=== PATIENT | female | born 1940 | race Caucasian/White ===

== ENCOUNTER 2016-07-18 04:23 | Inpatient (IN) | payer MEDICARE, MEDICAID ==
[~2016-07-18] VITALS: Ht 160 cm; Wt 56.7 kg
[~2016-07-18 04:23] MED LIST: ONDANSETRON 4 MG/2 ML (SDV) Z0FRAN ONE
[2016-07-18] MEDS ORDERED: ONDANSETRON 4 MG/2 ML (SDV) Z0FRAN IVP ONE ×2 (04:30→07:15)
[2016-07-18] MEDS ORDERED: fentaNYL INJECTION 100 MCG/2 ML AMP ONE (04:32)
[2016-07-18] MEDS ORDERED: NS IV 500 ML 500 ML ONE ×2 (04:38→06:55)
[2016-07-18] MEDS ORDERED: NS IV 500 ML 500 ML IV ONE ×2 (04:42→06:59)
[2016-07-18] MEDS ORDERED: ASPIRIN 81 MG CHEW (CHILDREN'S ASA) PO ONE (04:45)
[2016-07-18] MEDS ORDERED: fentaNYL INJECTION 100 MCG/2 ML AMP IVP ONE (04:45)
[2016-07-18] MEDS ORDERED: morphine INJ 10 MG/ML 1ML (SYR OR VIAL) ONE (04:48)
[2016-07-18 04:50] LABS: BASOPHILS # (AUTO) 0.1 10^3/uL (0.0-0.1); BASOPHILS % (AUTO) 0 % (0-10); EOSINOPHILS # (AUTO) 0.4 10^3/uL (0.0-0.3); EOSINOPHILS % (AUTO) 2 % (0-10); LYMPHOCYTES # (AUTO) 11.3 X 10^3 (1.0-4.0); LYMPHOCYTES % (AUTO) 53 % (12-44); MEAN CORPUSCULAR HEMOGLOBIN 28 PG (25-34); MEAN CORPUSCULAR HGB CONC 33 G/DL (32-36); MEAN CORPUSCULAR VOLUME 86 FL (80-99); MEAN PLATELET VOLUME 10.5 FL (7.4-10.4); MONOCYTES # (AUTO) 1.6 X 10^3 (0.0-1.0); MONOCYTES % (AUTO) 8 % (0-12); NEUTROPHILS # (AUTO) 7.8 X 10^3 (1.8-7.8); NEUTROPHILS % (AUTO) 37 % (42-75); PLATELET COUNT 329 10^3/uL (130-400); RED BLOOD COUNT 4.28 10^6/uL (4.35-5.85); RED CELL DISTRIBUTION WIDTH 16.2 % (10.0-14.5); WHITE BLOOD COUNT 21.2 10^3/uL (4.3-11.0)
[2016-07-18] MEDS ORDERED: morphine INJ 10 MG/ML 1ML (SYR OR VIAL) IVP ONE ×2 (05:00→05:15)
[2016-07-18 05:06] LABS: ALANINE AMINOTRANSFERASE 11 U/L (0-55); ALBUMIN 2.9 G/DL (3.2-4.5); ANION GAP 13 MMOL/L (5-14); ASPARTATE AMINO TRANSFERASE 22 U/L (5-34); BILIRUBIN,TOTAL 0.3 MG/DL (0.1-1.0); BLOOD UREA NITROGEN 32 MG/DL (7-18); BUN/CREATININE RATIO 13; CALCIUM 12.4 MG/DL (8.5-10.1); CARBON DIOXIDE 20 MMOL/L (21-32); CHLORIDE 97 MMOL/L (98-107); CREATININE SERUM 2.39 MG/DL (0.60-1.30); GFR ESTIMATED 20; GLUCOSE 107 MG/DL (70-105); MAGNESIUM 2.2 MG/DL (1.8-2.4); SODIUM 130 MMOL/L (135-145); TOTAL PROTEIN 7.2 G/DL (6.4-8.2)
[2016-07-18] MEDS ORDERED: HEParin DRIP 25000 UNIT/500ML 500 ML IV ONE ×2 (05:06→05:29)
[2016-07-18] MEDS ORDERED: CLOPIDOGREL 300 MG (PLAVIX) TABLET PO ONE ×2 (05:06→05:15)
[2016-07-18] MEDS ORDERED: HEParin 1000 UNIT/ML (10ML VIAL) FOR BOLUS ONE (05:06)
[2016-07-18] MEDS ORDERED: HEParin 1000 UNIT/ML (10ML VIAL) FOR BOLUS IV ONE (05:15)
[2016-07-18 05:21] LABS: POTASSIUM 6.6 MMOL/L (3.6-5.0)
--- NOTE | 2016-07-18 05:24 | ED General ---
General Chief Complaint: Chest Pain Stated Complaint: SOA,SHOULDER PAIN Nursing Triage Note: pt reports cp off and on for 3 weeks. pt reports episode starting yesterday afternoon. pt also reports bilateral shoulder pain and nausea. Nursing Sepsis Screen: No Definite Risk Source of Information: Patient, EMS, Family, Halfway Records Exam Limitations: No Limitations (SANJANA CARBAJAL MD) History of Present Illness Time Seen by Provider: 04:28 Initial Comments This chronically debilitated 76-year-old woman presents to the emergency room from [facility] with complaints of bilateral shoulder pain, chest pain , nausea, and vomiting. Her pain seemed to be more an exacerbation of chronic pain. She has some associated shortness of breath. She has a history of coronary artery disease status post multivessel CABG. She recently moved to the custodial after having a prolonged stay at [facility] for UTI related sepsis. She was inpatient for greater than one month. Daughter reports a urinalysis was collected recently but final results have not returned. She has a chronic indwelling catheter that has not been replaced in the past 30 days. Patient is vomiting upon assessment in the exam room. singer back tender shows a tachycardia with ST changes. She is alert and oriented but rather irritable regarding her pain. 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 (SANJANA CARBAJAL MD) Allergies and Home Medications Allergies Coded Allergies: No Known Drug Allergies (Unverified , 07/18/16) Home Medications Aspirin 81 Mg Tab.chew 81 MG PO DAILY (Reported) Atorvastatin Calcium 20 Mg Tablet 20 MG PO HS (Reported) Bisacodyl 5 Mg Tablet.dr 5 MG PO BID (Reported) Clopidogrel Bisulfate 75 Mg Tablet 75 MG PO DAILY (Reported) Folic Acid 1 Mg Tablet 1 MG PO DAILY (Reported) Furosemide 40 Mg Tablet 40 MG PO DAILY (Reported) Hydroxyzine HCl 25 Mg Tablet 25 MG PO TID PRN PRN ITCHING (Reported) Melatonin/Pyridoxine 1 Each Tablet 5 MG PO HS (Reported) Nystatin 1 Each Powder.ea. TP BID PRN PRN RASH (Reported) Ondansetron HCl 4 Mg Tab 4 MG PO Q6H (Reported) Oxycodone HCl 5 Mg Tablet 2.5 MG PO EVERY 3 HOURS PRN PRN PAIN (Reported) TAKES 1/2 OF A (5 MG) TABLET / FOR PAIN RATING 1-5 Oxycodone HCl 5 Mg Tablet 5 MG PO EVERY 3 HOURS PRN PRN PAIN (Reported) FOR PAIN RATING 6-10 Oxycodone HCl 30 Mg Tab.er.12h 30 MG PO BID (Reported) Polyethylene Glycol 3350 119 Gm Powder 17 GM PO DAILY (Reported) Potassium Chloride 10 Meq Tablet.er 10 MEQ PO BID (Reported) Sennosides/Docusate Sodium 1 Each Tablet 1 TAB PO BID (Reported) Spironolactone 25 Mg Tablet 25 MG PO DAILY (Reported) Zinc Oxide 113 Gm Cream..g. TP DAILY (Reported) Constitutional: no symptoms reported EENTM: no symptoms reported Respiratory: see HPI Cardiovascular: see HPI Gastrointestinal: see HPI Genitourinary: see HPI Musculoskeletal: see HPI Skin: no symptoms reported Psychiatric/Neurological: See HPI Hematologic/Lymphatic: No Symptoms Reported (SANJANA CARBAJAL MD) Past Vixmyqu-Xechbt-Lcejyw Hx Patient Social History Alcohol Use: Denies Use Recreational Drug Use: No Smoking Status: Never a Smoker Recent Foreign Travel: No Contact w/Someone Who Travel: No Recent Infectious Disease Expo: No Recent Hopitalizations: No Physical Abuse Screen: No Sexual Abuse: No (SANJANA CARBAJAL MD) Immunizations Up To Date Date of Influenza Vaccine: May 07, 2016 (SANJANA CARBAJAL MD) Surgeries HX Surgeries: Yes (r/l knee, l hip, back, l mastectomy) Surgeries: CABG, Coronary Stent, Gallbladder, Hysterectomy, Orthopedic (SANJANA CARBAJAL MD) Respiratory Hx Respiratory Disorders: No (SANJANA CARBAJAL MD) Cardiovascular Hx Cardiac Disorders: Yes Cardiac Disorders: Coronary Artery Disease, Heart Attack, High Cholesterol, Hypertension (SANJANA CARBAJAL MD) Neurological Hx Neurological Disorders: Yes (r side deficit from previous stroke, restless leg syndrome) Neurological Disorders: Neuropathy, Stroke (SANJANA CARBAJAL MD) Genitourinary Hx Genitourinary Disorders: Yes Genitourinary Disorders: Renal Failure, UTI-Chronic (SANJANA CARBAJAL MD) Gastrointestinal Hx Gastrointestinal Disorders: Yes Gastrointestinal Disorders: Colitis, Gastroesophageal Reflux, Gastrointestinal Bleed, Ulcer (SANJANA CARBAJAL MD) Musculoskeletal Hx Musculoskeletal Disorders: Yes (muscle weakness, ) Musculoskeletal Disorders: Arthritis (SANJANA CARBAJAL MD) Endocrine Hx Endocrine Disorders: Yes Endocrine Disorders: Diabetes, Non-Insulin dep (SANJANA CARBAJAL MD) HEENT HX ENT Disorders: Yes HEENT Disorders: Dysphagia (SANJANA CARBAJAL MD) Cancer Hx Cancer: Yes Cancer: Breast (SANJANA CARBAJAL MD) Integumentary HX Skin/Integumentary Disorder: No (SANJANA CARBAJAL MD) Blood Transfusions Hx Blood Disorders: No Adverse Reaction to a Blood Tr: No (SANJANA CARBAJAL MD) Physical Exam Vital Signs Vital Sign - Last 12Hours 07/18/16 04:34 Temp 97.7 Pulse 151 Resp 20 B/P 141/94 Pulse Ox 95 O2 Delivery Room Air (ELENA SOTELO MD) Vital Signs Capillary Refill : Less Than 3 Seconds (SANJANA CARBAJAL MD) General Appearance: WD/WN Moderate Distress HEENT: PERRL/EOMI Normal ENT Inspection Other (oropharynx somewhat dry) Neck: Normal Inspection Respiratory: Lungs Clear Normal Breath Sounds No Accessory Muscle Use No Respiratory Distress Cardiovascular: No Edema No Murmur Tachycardia Gastrointestinal: Normal Bowel Sounds Soft Tenderness (mild, generalized) Back: Normal Inspection Other (large scar over the lower spine) Extremity: No Pedal Edema Other (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 Mood is somewhat irritable) Neurologic/Psychiatric: Alert Oriented x3 spike machine heater II-XII Norm as Tested Motor Weakness (chronic deficits from prior stroke) Skin: Normal Color Warm/Dry (SANJANA CARBAJAL MD) Lumen: triple Central Line Procedure: betadine prep sterile drapes applied sterile dressing applied Position: internal jugular (R) Anesthesia: Lidocaine Volume Anesthetic (ccs): 3 Complications: none Post Position: sutured, good blood return, position confirmed w/ CXR Progress Place via U/S guidance x 1 stick. Tolerated well. No complications. (ELENA SOTELO MD) Progress/Results/Core Measures Results/Orders Lab Results Laboratory Tests Test 07/18/16 04:28 07/18/16 05:20 07/18/16 05:32 07/18/16 06:49 Range/Units Activated Partial Thromboplast Time 26 24-35 SEC Alanine Aminotransferase (ALT/SGPT) 11 0-55 U/L Albumin 2.9 L 3.2-4.5 G/DL Alkaline Phosphatase 113 40-136 U/L Anion Gap 13 5-14 MMOL/L Anisocytosis SLIGHT Aspartate Amino Transf (AST/SGOT) 22 5-34 U/L BUN/Creatinine Ratio 13 Band Neutrophils 0 % Basophils # (Auto) 0.1 0.0-0.1 10^3/uL Basophils % (Manual) 0 % Basophils (%) (Auto) 0 0-10 % Blood Urea Nitrogen 32 H 7-18 MG/DL Calcium Level 12.4 H 8.5-10.1 MG/DL Carbon Dioxide Level 20 L 21-32 MMOL/L Chloride Level 97 L 98-107 MMOL/L Creatinine 2.39 H 0.60-1.30 MG/DL Elliptocytes SLIGHT Eosinophils # (Auto) 0.4 H 0.0-0.3 10^3/uL Eosinophils % (Manual) 2 % Eosinophils (%) (Auto) 2 0-10 % Estimat Glomerular Filtration Rate 20 Glucose Level 107 H 70-105 MG/DL Hematocrit 37 35-52 % Hemoglobin 12.0 11.5-16.0 G/DL INR Comment 1.0 0.8-1.4 Lymphocytes # (Auto) 11.3 H 1.0-4.0 X 10^3 Lymphocytes % (Manual) 58 % Lymphocytes (%) (Auto) 53 H 12-44 % Magnesium Level 2.2 1.8-2.4 MG/DL Mean Corpuscular Hemoglobin 28 25-34 PG Mean Corpuscular Hemoglobin Concent 33 32-36 G/DL Mean Corpuscular Volume 86 80-99 FL Mean Platelet Volume 10.5 H 7.4-10.4 FL Monocytes # (Auto) 1.6 H 0.0-1.0 X 10^3 Monocytes % (Manual) 4 % Monocytes (%) (Auto) 8 0-12 % Myoglobin 101.0 H 10.0-92.0 NG/ML Neutrophils # (Auto) 7.8 1.8-7.8 X 10^3 Neutrophils % (Manual) 34 % Neutrophils (%) (Auto) 37 L 42-75 % Platelet Count 329 130-400 10^3/uL Poikilocytosis SLIGHT Polychromasia SLIGHT Potassium Level 6.6 *H 3.6-5.0 MMOL/L Prothrombin Time 13.0 12.2-14.7 SEC Reactive Lymphocytes 2 % Red Blood Count 4.28 L 4.35-5.85 10^6/uL Red Cell Distribution Width 16.2 H 10.0-14.5 % Rouleau SLIGHT Schistocytes SLIGHT Sodium Level 130 L 135-145 MMOL/L Total Bilirubin 0.3 0.1-1.0 MG/DL Total Protein 7.2 6.4-8.2 G/DL Toxic Granulation 1+ Troponin I < 0.30 <0.30 NG/ML White Blood Count 21.2 H 4.3-11.0 10^3/uL Urine Bacteria LARGE H /HPF Urine Bilirubin NEGATIVE NEGATIVE Urine Calcium Oxalate Crystals FEW H /LPF Urine Casts PRESENT /LPF Urine Clarity VERY CLOUDY H Urine Color YELLOW Urine Crystals PRESENT H /LPF Urine Culture Indicated YES Urine Glucose (UA) NEGATIVE NEGATIVE Urine Hyaline Casts 0-2 H /LPF Urine Ketones NEGATIVE NEGATIVE Urine Leukocyte Esterase 3+ H NEGATIVE Urine Mucus NEGATIVE /LPF Urine Nitrite NEGATIVE NEGATIVE Urine Protein 3+ H NEGATIVE Urine RBC 5-10 H /HPF Urine RBC (Auto) 5+ H NEGATIVE Urine Specific [place] 1.015 L 1.016-1.022 Urine Squamous Epithelial Cells 0-2 /HPF Urine Urobilinogen NORMAL NORMAL MG/DL Urine WBC TNTC H /HPF Urine pH 7 5-9 Lactic Acid Level 3.5 *H 0.5-2.0 MMOL/L (ELENA SOTELO MD) Micro Results Microbiology 07/18/16 Influenza Types A,B Antigen (JOSE) - Final, Complete (ELENA SOTELO MD) My Orders Orders-ELENA SOTELO MD Chest 1 View, Ap/Pa Only (07/18/16 06:34) Basic Metabolic Panel (07/18/16 06:47) (ELENA SOTELO MD) Medications Given in ED Current Medications Medications Dose Ordered Sig/Nick Route Start Time Stop Time Status Last Admin Dose Admin Aspirin 324 mg 324 mg ONCE ONCE PO 07/18/16 04:45 07/18/16 04:46 DC 07/18/16 04:59 324 MG Calcium Gluconate 4.65 meq ONCE ONCE IV 07/18/16 06:00 07/18/16 06:01 DC 07/18/16 06:08 4.65 MEQ Clopidogrel Bisulfate 600 mg 600 mg ONCE ONCE PO 07/18/16 05:15 07/18/16 05:16 DC 07/18/16 05:17 600 MG Dextrose 25 ml ONCE ONCE IV 07/18/16 05:45 07/18/16 05:46 MN 07/18/16 05:53 25 ML Fentanyl Citrate 100 mcg STK-MED ONCE .ROUTE 07/18/16 04:32 07/18/16 04:40 DC 07/18/16 04:49 50 MCG Heparin Sodium (Porcine) HEPARIN FULL PROTOC... ONCE ONCE IV 07/18/16 05:15 07/18/16 05:17 DC 07/18/16 05:22 4,500 UNIT Heparin Sodium/ Dextrose 500 ml STK-MED ONCE IV 07/18/16 05:06 07/18/16 05:14 DC 07/18/16 05:32 Insulin Human Regular 5 unit 5 unit ONCE ONCE IV 07/18/16 05:45 07/18/16 05:46 DC 07/18/16 05:53 5 UNIT Morphine Sulfate 4 mg ONCE ONCE IVP 07/18/16 05:00 07/18/16 05:01 MN 07/18/16 04:57 4 MG Morphine Sulfate 5 mg ONCE ONCE IVP 07/18/16 05:15 07/18/16 05:16 MN 07/18/16 05:16 5 MG Ondansetron HCl 8 mg ONCE ONCE IVP 07/18/16 04:30 07/18/16 04:31 MN 07/18/16 04:33 8 MG Piperacillin Sod/ Tazobactam Sod/ Sodium Chloride 100 ml @ 200 mls/hr ONCE ONCE IV 07/18/16 05:45 07/18/16 06:14 MN 07/18/16 06:00 200 MLS/HR Sodium Chloride 500 ml @ 0 mls/hr Q0M ONCE IV 07/18/16 04:42 07/18/16 04:46 DC 07/18/16 04:40 0 MLS/HR Sodium Chloride 1,000 ml @ 0 mls/hr Q0M ONCE IV 07/18/16 05:26 07/18/16 05:27 DC 07/18/16 05:32 0 MLS/HR (ELENA SOTELO MD) Vital Signs/I&O Vital Sign - Last 12Hours 07/18/16 07/18/16 07/18/16 04:34 04:34 05:07 Temp 97.7 97.7 Pulse 151 151 Resp 20 20 B/P 141/94 141/94 Pulse Ox 95 95 O2 Delivery Room Air Room Air (ELENA SOTELO MD) Blood Pressure Mean: 110 Progress Note #1: Time: 05:10 Progress Note Patient's EKG was suggestive of acute WA. This was communicated to the patient and she is uncertain if she would want to proceed with heart catheter. Case was discussed with Dr. Patrick who has concerns about proceeding with a heart catheter given the elevated white count and question of sepsis. Patient is tachycardic and has had history of sepsis with recent urinary tract infection. Given the complexity of the situation with possible sepsis, history of multivessel CABG, patient's DNR status, and her hesitancy to commit to invasive procedures, conservative medical therapy will be pursued at this time. Patient stresses that the most important thing to her at this point is to be made comfortable. Septic workup is in progress. Patient has been given multiple doses of narcotics for comfort. Nausea and vomiting was treated with Zofran. The situation and plan of care was again discussed with patient and family. They are in agreement with this approach. Dr. Patrick suggests treating with Plavix 600 mg, heparin bolus of 5000 units, beta eva, and high-dose statin. Progress Note #2: Time: 05:52 Progress Note STEMI has now been questioned given the presence of hyperkalemia. Abnormal EKG may be due to hyperacute T waves from hyperkalemia. Patient is persistently complaining of pain in multiple locations including the coccyx, shoulders, back , feet, etc. She has been given several doses of narcotic pain medications including most recently Dilaudid 1 mg IV. Treatment for hyperkalemia has been ordered including insulin 5 units IV, D50 25 g, and Kayexalate. She has received about 600 mL of IV fluids with further infusion in progress. Heparin drip is infusing. Continued discussion with Dr. Patrick has led to consideration for transfer to a tertiary care facility. Patient is hesitant to commit to transfer and is discussing with family. Progress Note #3: Time: 06:09 Progress Note Patient has decided against transfer. She is concerned about her pain and inability to tolerate transfer. Also, patient has developed hypotension in the meantime. Patient needs to be more stable before transfer is considered. Hypotension may be partially secondary to multiple narcotic doses. Patient's pain is moderately improved at this time. Zosyn is infusing for initial treatment of her suspected sepsis. An amp of calcium gluconate has also been ordered. The Toprol-XL previously ordered is being held due to hypotension. Progress Note #4: Time: 06:35 Progress Note Central line has been placed by Dr. Sotelo. Care has been transferred to him at this time. Case was reviewed with Dr. Adalgisa Hammer who is agreeable to admission to the ICU. Blood pressure is improving with fluid resuscitation. (SANJANA CARBAJAL MD) Progress Note : Progress Note Central line complete by me without difficulty via ultrasound guidance. Repeat BMP ordered to evaluate current potassium level. Patient remains hypotensive and has elevated white count and urinary tract infection which would indicate septic shock requiring high-volume fluid resuscitation. Patient has had normal saline 1 L bolus as well as a 500 mL bolus. We will repeat 500 mL bolus to give greater than 30 mL/kg IV bolus of saline (approximately 1700 mL required). Patient refused Kayexalate. Heart rate has improved to 120s low blood pressure remains tenuous. Patient will be transferred to the ICU. Family and patient were informed of the critical nature of her condition and understand this is significantly life-threatening overall. (ELENA SOTELO MD) ECG Initial ECG Impression Date: Jul 18, 2016 Initial ECG Impression Time: 04:34 Initial ECG Rate: 152 Initial ECG Rhythm: S.Tach Initial ECG Impression: Acute WA Comment Sinus tachycardia with ST elevation indicative of acute WA versus hyperacute T waves from hyperkalemia. (SANJANA CARBAJAL MD) Diagnostic Imaging Diagonstic Imaging: Xray Plain Films/CT/US/NM/MRI: chest Comments Chest x-ray viewed by me and report not yet available. No acute abnormalities appreciated. (SANJANA CARBAJAL MD) Critical Care Note Critical Care Start Time: 04:30 Stop Time: 07:15 Total Time (minutes) 165 (SANJANA CARBAJAL MD) Departure Communication Time/Spoke to Admitting Phy: 06:[address] Adalgisa Hammer Time/Spoke to Consulting Physi: 04:38 Communication/Consulting Dr. Patrick (SANJANA CARBAJAL MD) Impression Impression: Primary Impression: Septic shock Additional Impressions: Acute coronary syndrome Hyperkalemia Acute renal failure Qualified Code: N17.9 - Acute kidney failure, unspecified Generalized pain Urinary tract infection Qualified Code: N39.0 - Urinary tract infection, site not specified Hyponatremia Disposition: ADMITTED INPATIENT Condition: Critical Decision to Admit Reason: Admit from ER (General) Decision to Admit/Date: Jul 18, 2016 Time/Decision to Admit Time: 04:35 (SANJANA CARBAJAL MD) Departure-Patient Inst. Referrals: BHUMI CRUZ MD (PCP) Primary Care Physician SANJANA CARBAJAL MD Jul 18, 2016 05:24 ELENA SOTELO MD Jul 18, 2016 06:47
[2016-07-18 05:26] LABS: BAND NEUTROPHILS 0 %; BASOPHILS % (MANUAL) 0 %; EOSINOPHILS % (MANUAL) 2 %; LYMPHOCYTES % (MANUAL) 58 %; NEUTROPHILS % (MANUAL) 34 %; REACTIVE LYMPHOCYTES 2 %
[2016-07-18] MEDS ORDERED: NS IV 1000 ML 1,000 ML IV ONE (05:26)
[2016-07-18 05:27] LABS: ANISOCYTOSIS SLIGHT; POIKILOCYTOSIS SLIGHT; POLYCHROMASIA SLIGHT; ROULEAUX SLIGHT; SCHISTOCYTES SLIGHT
[2016-07-18] MEDS ORDERED: SOD POLYSTERENE 15 GM/60 ML (KAYEXALATE) UNIT DOSE PO ONE (05:30)
[2016-07-18] MEDS ORDERED: HYDROmorphone (DILAUDID) 2 MG/ML VIAL IVP STA (05:36)
[2016-07-18] MEDS: meTOproloL SUCCINATE 50 MG (TOPROL XL) TAB PO SCH ×2 (05:37→07:04)
[2016-07-18 05:40] LABS: BILIRUBIN,URINE NEGATIVE (NEGATIVE); KETONES,URINE NEGATIVE (NEGATIVE); LEUKOCYTE ESTERASE ,URINE 3+ (NEGATIVE); NITRITE,URINE NEGATIVE (NEGATIVE); PH,URINE 7 (5-9); PROTEIN,URINE 3+ (NEGATIVE); UROBILINOGEN,URINE NORMAL (NORMAL)
[2016-07-18] MEDS ORDERED: PIPERACILLIN SODIUM/TAZOBACTAM 4.5 GM in NORMAL SALINE (BAXTER MINI) 100 ML IV ONE (05:45)
[2016-07-18] MEDS ORDERED: inSUlin (REGULAR) HUMAN 1 UNIT/0.01 ML (CHARGE PER UNIT) IV ONE (05:45)
[2016-07-18] MEDS ORDERED: DEXTROSE 50% 50 ML (IMS) SYR IV ONE (05:45)
[2016-07-18 05:47] LABS: CALCIUM OXALATE CRYSTALS,UR FEW /LPF; SQUAMOUS EPITHELIAL CELL,UR 0-2 /HPF; WBC,URINE TNTC /HPF
[2016-07-18 05:48] LABS: HYALINE CASTS, URINE 0-2 /LPF
[2016-07-18] MEDS ORDERED: PIPERACILLIN/TAZO 4.5 GM VIAL (ZOSYN) IV ONE (05:53)
[2016-07-18] MEDS ORDERED: NORMAL SALINE (BAXTER MINI) 100 ML IV ONE (05:53)
[2016-07-18] MEDS ORDERED: CALCIUM GLUC. 10% 4.65 MEQ/10 ML VIAL IV ONE ×2 (06:00→07:15)
[2016-07-18] MEDS ORDERED: ATORVASTATIN 80 MG (LIPITOR) TABLET ONE (06:40)
--- NOTE | 2016-07-18 06:49 | Diagnostic Imaging Report ---
INDICATION: Central line placement. COMPARISON: 4:53 a.m. exam. FINDINGS: Right central line is present. Tip overlies a superior vena caval shadow at the confluence of the right atrium. Lungs are well-aerated. No pneumothorax or pleural effusion. Postoperative residue again noted. IMPRESSION: Satisfactory right central line placement. Dictated by: Dictated on workstation # [id number]
--- NOTE | 2016-07-18 06:55 | Diagnostic Imaging Report ---
Indication: Chest pain for 3 weeks. Portable chest shows lungs to be clear. The heart is not enlarged. Median sternotomy changes are present. No evidence of pulmonary edema. No pneumothorax or pleural effusion. Advanced degenerative changes noted of the shoulders bilaterally. IMPRESSION: Postoperative residue with no acute changes noted. Dictated by: Dictated on workstation # [id number]
[2016-07-18 07:00] VITALS: BP 82/29
[2016-07-18] MEDS ORDERED: ONDANSETRON 4 MG/2 ML (SDV) Z0FRAN ONE (07:00)
[2016-07-18] MEDS ORDERED: VASOPRESSIN INJECTION 20 UNIT in NS (IVPB) 100 ML IV SCH (07:35)
[2016-07-18] MEDS ORDERED: PHENYLEPHRINE FOR DRIPS 10 MG in D5W 250 ML (IVPB) 250 ML IV SCH (07:35)
[2016-07-18] MEDS ORDERED: HYDROmorphone (DILAUDID) 2 MG/ML VIAL IV PRN (07:45)
[2016-07-18] MEDS ORDERED: CATHETER FLUSH 10 ML SYR IV PRN (07:45)
[2016-07-18] MEDS ORDERED: ONDANSETRON 4 MG/2 ML (SDV) Z0FRAN IV PRN (07:45)
[2016-07-18 08:00] VITALS: BP 101/94
[2016-07-18] MEDS ORDERED: VANCOMYCIN INJECTION 1,250 MG in NS (IVPB) 250 ML IV NR (08:00)
[2016-07-18] MEDS ORDERED: D5W 250 ML (IVPB) 250 ML IV ONE (08:03)
[2016-07-18] MEDS ORDERED: NOREPINEPHRINE FOR DRIPS 4 MG/4 ML AMP IV ONE (08:03)
[2016-07-18] MEDS: NOREPINEPHRINE FOR DRIPS 4 MG in D5W 250 ML (IVPB) 250 ML IV SCH (08:20)
[2016-07-18] MEDS: NS IV 1000 ML 1,000 ML IV SCH (08:21)
[2016-07-18 08:26] LABS: CALCIUM 11.5 MG/DL (8.5-10.1); CREATININE SERUM 2.06 MG/DL (0.60-1.30); POTASSIUM 5.4 MMOL/L (3.6-5.0)
[2016-07-18 08:55] LABS: ABG BASE EXCESS -2.3 MMOL/L (-2.5-2.5); ABG HCO3 21 MMOL/L (23-27); ABG OXYGEN SATURATION 98 % (94-100); ABG PCO2 30 MMHG (35-45); ABG PH 7.46 (7.37-7.43); ABG PO2 94 MMHG (79-93); ABG TCO2 21.9 MMOL/L (21.0-31.0); ALLENS TEST POSITIVE; PATIENT TEMP 97.4
[2016-07-18 09:00] VITALS: BP 87/65
[2016-07-18] MEDS: HYDROmorphone (DILAUDID) 2 MG/ML VIAL IVP PRN ×4 (09:06→15:24)
[2016-07-18] MEDS ORDERED: SPIR25TA PO (09:24)
[2016-07-18] MEDS ORDERED: MELA1TAB15 PO (09:24)
[2016-07-18] MEDS ORDERED: BISA-65 PO (09:24)
[2016-07-18] MEDS ORDERED: CLOP75TA69 PO (09:24)
[2016-07-18] MEDS ORDERED: FOLI1TAB24 PO (09:24)
[2016-07-18] MEDS ORDERED: POLY119P5 PO (09:24)
[2016-07-18] MEDS ORDERED: OXYC30TA77 PO (09:24)
[2016-07-18] MEDS ORDERED: OXYC5TAB71 PO ×2 (09:24)
[2016-07-18] MEDS ORDERED: ONDN4T PO (09:24)
[2016-07-18] MEDS ORDERED: ATOR20TA66 PO (09:24)
[2016-07-18] MEDS ORDERED: SENN-120 PO (09:24)
[2016-07-18] MEDS ORDERED: FURO-124 PO (09:24)
[2016-07-18] MEDS ORDERED: HYDR-700 PO (09:24)
[2016-07-18] MEDS ORDERED: POTA10TA6 PO (09:24)
[2016-07-18] MEDS ORDERED: ASPI-999 PO (09:24)
--- NOTE | 2016-07-18 09:25 | History & Physicial (CHS) ---
HPI History of Present Illness: 76yo woman presented to ER after complaining of palpitations and shortness of breath overnight in her prison at [facility]. She was hospitalized at for bleeding gastric ulcers and sepsis for 40 days in fall. She was then transferred to [facility] to be closer to family. SInce taht time, she has had ongoing urinary issues. she was recommended to see Dr Bloivar but was not able to attend an appointment with him. In June, she began to have sx of a UTI again, and cultures were done. She was put on oral antibiotics, and the situation seemed to be resolving. However, she worsened acutely overnight and was found to be in septic shock. Patient's main complaint to me the morning of admission was of her generalized pain, likely cuased by her longstanding bedridden status and debility. Of note, patient's family emphasized that patient did not want a code. They also stated that she did not want transfer despite this being recommended due to hyperacute T waves due to her renal failure. THey requested that she be treated at [facility] with all services we have to offer. Source: patient, family Exam Limitations: clinical condition Date seen by provider: Jul 18, 2016 Attending Physician Adalgisa Hammer MD PCP Bhumi Cruz MD Consult Date of Admission Jul 18, 2016 at 6:21 am Home Medications Home Medications Reviewed patient Home Medication Reconciliation Form Allergies Coded Allergies: No Known Drug Allergies (Unverified , 07/18/16) [id number] Hx Patient Social History Alcohol Use: Denies Use Recreational Drug Use: No Smoking Status: Never a Smoker Recent Foreign Travel: No Contact w/other who traveled: No Recent Hopitalizations: No Recent Infectious Disease Expo: No Physical Abuse Screen: No Sexual Abuse: No Immunizations Up To Date Date of Influenza Vaccine: May 07, 2016 Review of Systems ([facility]) Constitutional: no symptoms reported All Other Systems Reviewed Negative Unless Noted: Yes (Negative excepted noted.) Reviewed Test Results Reviewed Test Results Lab Laboratory Tests Test 07/18/16 04:28 07/18/16 05:20 07/18/16 05:32 07/18/16 07:51 Range/Units Activated Partial Thromboplast Time 26 24-35 SEC Alanine Aminotransferase (ALT/SGPT) 11 0-55 U/L Albumin 2.9 L 3.2-4.5 G/DL Alkaline Phosphatase 113 40-136 U/L Anion Gap 13 11 5-14 MMOL/L Anisocytosis SLIGHT Aspartate Amino Transf (AST/SGOT) 22 5-34 U/L BUN/Creatinine Ratio 13 14 Band Neutrophils 0 % Basophils # (Auto) 0.1 0.0-0.1 10^3/uL Basophils % (Manual) 0 % Basophils (%) (Auto) 0 0-10 % Blood Urea Nitrogen 32 H 29 H 7-18 MG/DL Calcium Level 12.4 H 11.5 H 8.5-10.1 MG/DL Carbon Dioxide Level 20 L 18 L 21-32 MMOL/L Chloride Level 97 L 103 98-107 MMOL/L Creatinine 2.39 H 2.06 H 0.60-1.30 MG/DL Elliptocytes SLIGHT Eosinophils # (Auto) 0.4 H 0.0-0.3 10^3/uL Eosinophils % (Manual) 2 % Eosinophils (%) (Auto) 2 0-10 % Estimat Glomerular Filtration Rate 20 23 Glucose Level 107 H 101 70-105 MG/DL Hematocrit 37 35-52 % Hemoglobin 12.0 11.5-16.0 G/DL INR Comment 1.0 0.8-1.4 Lymphocytes # (Auto) 11.3 H 1.0-4.0 X 10^3 Lymphocytes % (Manual) 58 % Lymphocytes (%) (Auto) 53 H 12-44 % Magnesium Level 2.2 1.8-2.4 MG/DL Mean Corpuscular Hemoglobin 28 25-34 PG Mean Corpuscular Hemoglobin Concent 33 32-36 G/DL Mean Corpuscular Volume 86 80-99 FL Mean Platelet Volume 10.5 H 7.4-10.4 FL Monocytes # (Auto) 1.6 H 0.0-1.0 X 10^3 Monocytes % (Manual) 4 % Monocytes (%) (Auto) 8 0-12 % Myoglobin 101.0 H 10.0-92.0 NG/ML Neutrophils # (Auto) 7.8 1.8-7.8 X 10^3 Neutrophils % (Manual) 34 % Neutrophils (%) (Auto) 37 L 42-75 % Platelet Count 329 130-400 10^3/uL Poikilocytosis SLIGHT Polychromasia SLIGHT Potassium Level 6.6 *H 5.4 H 3.6-5.0 MMOL/L Prothrombin Time 13.0 12.2-14.7 SEC Reactive Lymphocytes 2 % Red Blood Count 4.28 L 4.35-5.85 10^6/uL Red Cell Distribution Width 16.2 H 10.0-14.5 % Rouleau SLIGHT Schistocytes SLIGHT Sodium Level 130 L 132 L 135-145 MMOL/L Total Bilirubin 0.3 0.1-1.0 MG/DL Total Protein 7.2 6.4-8.2 G/DL Toxic Granulation 1+ Troponin I < 0.30 < 0.30 <0.30 NG/ML White Blood Count 21.2 H 4.3-11.0 10^3/uL Urine Bacteria LARGE H /HPF Urine Bilirubin NEGATIVE NEGATIVE Urine Calcium Oxalate Crystals FEW H /LPF Urine Casts PRESENT /LPF Urine Clarity VERY CLOUDY H Urine Color YELLOW Urine Crystals PRESENT H /LPF Urine Culture Indicated YES Urine Glucose (UA) NEGATIVE NEGATIVE Urine Hyaline Casts 0-2 H /LPF Urine Ketones NEGATIVE NEGATIVE Urine Leukocyte Esterase 3+ H NEGATIVE Urine Mucus NEGATIVE /LPF Urine Nitrite NEGATIVE NEGATIVE Urine Protein 3+ H NEGATIVE Urine RBC 5-10 H /HPF Urine RBC (Auto) 5+ H NEGATIVE Urine Specific [place] 1.015 L 1.016-1.022 Urine Squamous Epithelial Cells 0-2 /HPF Urine Urobilinogen NORMAL NORMAL MG/DL Urine WBC TNTC H /HPF Urine pH 7 5-9 Lactic Acid Level 3.5 *H 4.0 *H 0.5-2.0 MMOL/L Test 07/18/16 08:48 Range/Units Christian Test POSITIVE Arterial Blood Base Excess -2.3 -2.5-2.5 MMOL/L Arterial Blood HCO3 21 L 23-27 MMOL/L Arterial Blood Oxygen Saturation 98 94-100 % Arterial Blood Partial Pressure CO2 30 L 35-45 MMHG Arterial Blood Partial Pressure O2 94 H 79-93 MMHG Arterial Blood Total CO2 21.9 21.0-31.0 MMOL/L Arterial Blood pH 7.46 H 7.37-7.43 Blood Gas Inspired Oxygen N/A Blood Gas Patient Temperature 97.4 Blood Gas Puncture Site RIGHT BRACHIAL Blood Gas Ventilator Setting NO Physical Exam-(CHC) Physical Exam Vital Signs VS - Last 72 Hours, by Label 07/18/16 07/18/16 07/18/16 07/18/16 04:34 04:34 05:00 05:07 Temp 97.7 97.7 97.7 Pulse 151 151 151 Resp 20 20 10 B/P 141/94 141/94 145/95 Pulse Ox 95 95 95 O2 Delivery Room Air Room Air 07/18/16 07/18/16 07/18/16 07/18/16 05:30 06:00 06:30 07:00 Temp 97.7 97.7 97.7 97.7 Pulse 151 136 136 119 Resp 13 13 12 14 B/P 104/72 95/48 106/66 94/42 Pulse Ox 98 94 94 96 07/18/16 07/18/16 07/18/16 07/18/16 07:00 07:18 08:00 08:20 Temp 97.8 Pulse 119 100 Resp 18 11 15 B/P 82/29 101/94 71/25 Pulse Ox 97 95 07/18/16 07/18/16 07/18/16 07/18/16 09:00 10:00 11:00 12:00 Pulse 80 104 110 B/P 87/65 54/46 104/85 100/78 07/18/16 20:45 O2 Delivery Room Air Capillary Refill : Less Than 3 Seconds General Appearance: moderate distress thin (crying in pain) HEENT: PERRL/EOMI other (very dry MM) Neck: non-tender supple normal inspection Respiratory: lungs clear normal breath sounds no respiratory distress no accessory muscle use Cardiovascular: no edema no gallop no JVD no murmur tachycardia Gastrointestinal: normal bowel sounds non tender soft no organomegaly Extremities: no pedal edema calf tenderness slow capillary refill Neurologic/Psychiatric: no motor/sensory deficits alert oriented x 3 depressed affect (due to pain) Skin: cyanosis cool mottled Assessment/Plan Assessment/Plan Plan SEVERE SEPSIS/SEPTIC SHOCK ACUTE PYELONEPHRITIS LONGSTANDING INDWELLING MAYES CATHETER STEMI VERSUS STRESS CARDIOMYOPATHY 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 HOwever, the patient continued to cry out "don't touch me " and "let me go." I discussed with her daughter, in her presence, that there were many issues to overcome. I first asked if she would want elective intubation should she not be able to breathe well from the rapid fluid administration. Her daughter and the patient indicated that she did not want to be on lorne vent whatsoever. Secondly, I approached them regarding a comfort/ palliative care direction. My concern is that the family would remember the patient crying in pain, especially if we were unsuccessful and she . When asked, Renata was very clear to me that she wanted to stop everything and receive pain medication. I explained that the apin medication would greatly inhibit our efforts to improve her blood pressure and potentially to save her life. She was very clear that she was "ready to go." For that reason , we decided to move to a comfort care regimen. I did leave the levophed on for a few hours while her family came in to town to visit with her. From there , we stopped all meds and moved to dilaudid for pain control and ativan for anxiety. She was transferred to 4th floor for increased privacy. Patinet and family were appreciative of and agreeable to this plan. Diagnosis/Problems: Clinical Quality Measures AMI/AHF: ASA po Prior to arrival: No Copy Copies To 1: BHUMI CRUZ MD, JULIE A MD Jul 18, 2016 9:25 am
[2016-07-18 10:00] VITALS: BP 54/46
[2016-07-18] MEDS ORDERED: NYST1POW22 TP (10:39)
[2016-07-18] MEDS ORDERED: ZINC113C8 TP (10:39)
[2016-07-18 11:00] VITALS: BP 104/85
[2016-07-18 12:00] VITALS: BP 100/78
[2016-07-18] MEDS ORDERED: PIPERACILLIN SODIUM/TAZOBACTAM 4.5 GM in NORMAL SALINE (BAXTER MINI) 100 ML IV SCH (12:00)
[2016-07-18] MEDS ORDERED: NS IV 1000 ML 1,000 ML IV SCH (12:45)
--- NOTE | 2016-07-18 13:22 | Consultation-Cardiology ---
HPI-Cardiology Cardiology Consultation: Date of Consultation 07/18/16 Date of Admission Attending Physician Adalgisa Hammer MD Admitting Physician Terence Johnston MD Consulting Physician Rashida PATRICK MD HPI: Chief Complaint: Chest pain, shoulder pain, nausea, vomiting. This is a 76-year-old lady who presented from a [place] [facility] to our emergency room with the complaints of chest pain, shoulder pain, nausea and vomiting. She was transferred to the [place] [facility] [place] after a prolonged admission at [facility] for UTI sepsis with an indwelling catheter. She has previous history of CVA and hemiplegia and is non-ambulatory. She also has history of cognitive dysfunction. 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 I saw the patient in the morning at around 8-9 a.m. however this note is dictated in the afternoon. I stayed in touch with Dr. Ayala in the ER since manager client service. Initially I was called because the EKG showed diffused ST depressions and peaked T waves in the anterior precordial leads which were suspicious for acute VT. At that point in time we also learned that the patient had a positive UA for UTI and a white count of over 20,000 which suggest significant UTI sepsis. The patient also was very reluctant to undergo invasive procedures and wanted to be more comfortable. This was also the wish of the family. While I was discussing with the ER physician, we also got back the electrolytes which showed a potassium of 6.6 and creatinine of 2.4. Severe hyperkalemia can also give peaked T waves. Her first set of troponin was negative. We therefore decided not to pursue invasive strategy for her possible ACS and treat her with medications including aspirin, Plavix, heparin. When I saw the patient she was complaining of generalized pain. However, she was not specifically having any chest pain but more of a left shoulder pain and back pain. Review of Systems-Cardiology Review of Systems Constitutional: chills Eyes: No As described under HPI, No no symptoms reported, No blindness, No blurred vision, No contact lenses, No drainage, No decreased acuity, No foreign body sensation, No glasses, No inflammation, No pain, No photophobia, No previous injury, No shadows, No tunnel vision, No other, No vision change Ears/Nose/Throat: No As described under HPI, No no symptoms reported, No chronic hearing loss, No epistaxis, No ear discharge, No ear pain, No loose teeth, No mouth pain, No mouth swelling, No nasal drainage, No nose pain, No recent hearing loss, No throat pain, No throat swelling, No ulcerations, No other Respiratory: No no symptoms reported, No As described under HPI, No cough, No orthopnea, No shortness of breath, No SOB with excertion, No SOB at rest, No stridor, No wheezing, No other Cardiovascular: No no symptoms reported, No As described under HPI, chest painNo edema, No irregular heart rate, No lightheadedness, No palpitations, No syncope, No other Gastrointestinal: No no symptoms reported, No As described under HPI, No abdomen distended, No abdominal pain, No blood streaked bowels, No constipation , No diarrhea, No difficulty swallowing, nauseaNo poor appetite, No poor fluid intake, No rectal bleeding, vomitingNo other, No nausea/vomiting/diarrhea, No stool coloration changes Genitourinary: other (indwelling urinary catheter) Musculoskeletal: back pain Skin: No no symptoms reported, No As described under HPI, No change in color, No change in hair/nails, No dryness, No lesions, No lumps, No rash, No other, No skin related problems, No ulcerations, No rash on exposed areas, No ulcerations on exposed areas Psychiatric/Neurological: No As described under HPI, No anxiety, No depression , No emotional problems, No focal weakness, No headache, No no symptoms reported , No numbness, No other, No pre-existing deficit, No seizure, No syncope, No tingling, No tremors, No weakness [id number] Hx Patient Social History Alcohol Use: Denies Use Recreational Drug Use: No Smoking Status: Never a Smoker Recent Foreign Travel: No Recent Infectious Disease Expo: No Physical Abuse Screen: No Sexual Abuse: No Immunizations Up To Date Date of Influenza Vaccine: May 07, 2016 Past Medical History PMH As described under Assessment. Allergies and Home Medications Allergies Coded Allergies: No Known Drug Allergies (Unverified , 07/18/16) Home Medications Aspirin 81 Mg Tab.chew 81 MG PO DAILY (Reported) Atorvastatin Calcium 20 Mg Tablet 20 MG PO HS (Reported) Bisacodyl 5 Mg Tablet.dr 5 MG PO BID (Reported) Clopidogrel Bisulfate 75 Mg Tablet 75 MG PO DAILY (Reported) Folic Acid 1 Mg Tablet 1 MG PO DAILY (Reported) Furosemide 40 Mg Tablet 40 MG PO DAILY (Reported) Hydroxyzine HCl 25 Mg Tablet 25 MG PO TID PRN PRN ITCHING (Reported) Melatonin/Pyridoxine 1 Each Tablet 5 MG PO HS (Reported) Nystatin 1 Each Powder.ea. TP BID PRN PRN RASH (Reported) Ondansetron HCl 4 Mg Tab 4 MG PO Q6H (Reported) Oxycodone HCl 5 Mg Tablet 2.5 MG PO EVERY 3 HOURS PRN PRN PAIN (Reported) TAKES 1/2 OF A (5 MG) TABLET / FOR PAIN RATING 1-5 Oxycodone HCl 5 Mg Tablet 5 MG PO EVERY 3 HOURS PRN PRN PAIN (Reported) FOR PAIN RATING 6-10 Oxycodone HCl 30 Mg Tab.er.12h 30 MG PO BID (Reported) Polyethylene Glycol 3350 119 Gm Powder 17 GM PO DAILY (Reported) Potassium Chloride 10 Meq Tablet.er 10 MEQ PO BID (Reported) Sennosides/Docusate Sodium 1 Each Tablet 1 TAB PO BID (Reported) Spironolactone 25 Mg Tablet 25 MG PO DAILY (Reported) Zinc Oxide 113 Gm Cream..g. TP DAILY (Reported) Physical Exam-Cardiology Physical Exam Vital Signs/I&O Vital Sign - Last 12Hours 07/18/16 07/18/16 07/18/16 07/18/16 04:34 04:34 05:00 05:07 Temp 97.7 97.7 97.7 Pulse 151 151 151 Resp 20 20 10 B/P 141/94 141/94 145/95 Pulse Ox 95 95 95 O2 Delivery Room Air Room Air 07/18/16 07/18/16 07/18/16 07/18/16 05:30 06:00 06:30 07:00 Temp 97.7 97.7 97.7 97.7 Pulse 151 136 136 119 Resp 13 13 12 14 B/P 104/72 95/48 106/66 94/42 Pulse Ox 98 94 94 96 07/18/16 07/18/16 07:18 08:20 Pulse 119 Resp 18 15 B/P 71/25 Pulse Ox 97 95 Capillary Refill : Less Than 3 Seconds Data Review Labs Laboratory Tests 07/18/16 04:28: Activated Partial Thromboplast Time 26, Alanine Aminotransferase (ALT/SGPT) 11, Albumin 2.9L, Alkaline Phosphatase 113, Anion Gap 13, Anisocytosis SLIGHT, Aspartate Amino Transf (AST/SGOT) 22, BUN/Creatinine Ratio 13, Band Neutrophils 0, Basophils # (Auto) 0.1, Basophils % (Manual) 0, Basophils (%) (Auto) 0, Blood Urea Nitrogen 32H, Calcium Level 12.4H, Carbon Dioxide Level 20L, Chloride Level 97L, Creatinine 2.39H, Elliptocytes SLIGHT, Eosinophils # (Auto) 0.4H, Eosinophils % (Manual) 2, Eosinophils (%) (Auto) 2, Estimat Glomerular Filtration Rate 20, Glucose Level 107H, Hematocrit 37, Hemoglobin 12.0, INR Comment 1.0, Lymphocytes # (Auto) 11.3H, Lymphocytes % (Manual) 58, Lymphocytes (%) (Auto) 53H, Magnesium Level 2.2, Mean Corpuscular Hemoglobin 28, Mean Corpuscular Hemoglobin Concent 33, Mean Corpuscular Volume 86, Mean Platelet Volume 10.5H, Monocytes # (Auto) 1.6H, Monocytes % (Manual) 4, Monocytes (%) ( Auto) 8, Myoglobin 101.0H, Neutrophils # (Auto) 7.8, Neutrophils % (Manual) 34, Neutrophils (%) (Auto) 37L, Platelet Count 329, Poikilocytosis SLIGHT, Polychromasia SLIGHT, Potassium Level 6.6*H, Prothrombin Time 13.0, Reactive Lymphocytes 2, Red Blood Count 4.28L, Red Cell Distribution Width 16.2H, Rouleau SLIGHT, Schistocytes SLIGHT, Sodium Level 130L, Total Bilirubin 0.3, Total Protein 7.2, Toxic Granulation 1+, Troponin I < 0.30, White Blood Count 21.2H 07/18/16 05:20: Urine Bacteria LARGEH, Urine Bilirubin NEGATIVE, Urine Calcium Oxalate Crystals FEWH, Urine Casts PRESENT, Urine Clarity VERY CLOUDYH, Urine Color YELLOW, Urine Crystals PRESENTH, Urine Culture Indicated YES, Urine Glucose (UA) NEGATIVE, Urine Hyaline Casts 0-2H, Urine Ketones NEGATIVE, Urine Leukocyte Esterase 3+H, Urine Mucus NEGATIVE, Urine Nitrite NEGATIVE, Urine Protein 3+H, Urine RBC 5-10H, Urine RBC (Auto) 5+H, Urine Specific [place] 1.015L, Urine Squamous Epithelial Cells 0-2, Urine Urobilinogen NORMAL, Urine WBC TNTCH, Urine pH 7 12/28/16 05:32: Lactic Acid Level 3.5*H 07/18/16 07:51: Anion Gap 11, BUN/Creatinine Ratio 14, Blood Urea Nitrogen 29H, Calcium Level 11.5H, Carbon Dioxide Level 18L, Chloride Level 103, Creatinine 2.06H, Estimat Glomerular Filtration Rate 23, Glucose Level 101, Potassium Level 5.4H, Sodium Level 132L, Troponin I < 0.30, Lactic Acid Level 4.0*H 07/18/16 08:48: Christian Test POSITIVE, Arterial Blood Base Excess -2.3, Arterial Blood HCO3 21L, Arterial Blood Oxygen Saturation 98, Arterial Blood Partial Pressure CO2 30L, Arterial Blood Partial Pressure O2 94H, Arterial Blood Total CO2 21.9, Arterial Blood pH 7.46H, Blood Gas Inspired Oxygen N/A, Blood Gas Patient Temperature 97.4, Blood Gas Puncture Site RIGHT BRACHIAL, Blood Gas Ventilator Setting NO Microbiology 07/18/16 Influenza Types A,B Antigen (JOSE) - Final, Complete ECG Impression ECG Initial ECG Rhythm: S.Tach Comment Diffuse ST depression, ST elevation in aVR. Peak T waves in leads V1-V3. A/P-Cardiology Assessment/Admission Diagnosis Generalized pain including chest pain, Hyperkalemia with acute renal failure, Severe UTI sepsis with septic shock, Previous history of coronary artery disease Plan Please see HPI for discussion and timelines. Chest pain: Acute coronary syndrome ruled out with serial negative troponins. Therefore I have discontinued heparin. She will continue on aspirin. Hyperkalemia and acute renal failure: Deferred to primary service. UTI sepsis and septic shock: Fluid resuscitation, broad-spectrum antibiotics. Generalized pain: Pain consult. Narcotics. Previous history of coronary artery disease: Aspirin. Continue other home medications. During my evaluation in the morning, the family and the RN shared with me that they have decided to pursue hospice and palliative care. Afterwards I also discussed with Dr. Hammer who informed me of the same. Thank you for your consultation. Please call me if you have any further questions. Elva Patrick M.D. Cardiology Clinical Quality Measures AMI/AHF: ASA po Prior to arrival: Rashida Flores MD Jul 18, 2016 13:22
[2016-07-18] MEDS: LORazepam INJ 2 MG/ML (ATIVAN) VIAL IVP PRN ×2 (13:29→18:00)
[2016-07-18] MEDS ORDERED: ATORVASTATIN 80 MG (LIPITOR) TABLET PO SCH (21:00)
[2016-07-19] MEDS: LORazepam INJ 2 MG/ML (ATIVAN) VIAL IVP PRN ×3 (00:51→21:20)
[2016-07-19] MEDS ORDERED: TROUGH ORDER-PHARMACY XX NR (07:00)
[2016-07-19] MEDS ORDERED: VANCOMYCIN 750 MG/NS 250 ML IVPB IV SCH ×2 (08:00)
[2016-07-19] MEDS ORDERED: ATROPINE 1% OPHTHALMIC SOLN 2 ML SL PRN (11:45)
[2016-07-19] MEDS ORDERED: GLYCOPYRROLATE 0.2 MG/ML (ROBINUL) 2 ML VIAL IV PRN (11:45)
[2016-07-19] MEDS ORDERED: ARTIFICAL TEARS 0.4 ML UNIT DOSE (REFRESH PLUS) OU PRN (11:45)
[2016-07-19] MEDS: SCOPOLAMINE 1.5 MG (TRANSDERM-SCOP) PATCH TOP SCH (11:45)
[2016-07-19] MEDS ORDERED: ARTIFICIAL TEARS OINT (LACRI-LUBE) 3.5 GM TUBE OU PRN (11:45)
[2016-07-19] MEDS ORDERED: SALIVA STIMULANT MOUTH SPRAY (BIOTENE) 1.5 OZ MM PRN (11:45)
[2016-07-19] MEDS: HYDROmorphone (DILAUDID) 2 MG/ML VIAL IVP PRN ×3 (13:02→21:20)
--- NOTE | 2016-07-19 15:12 | Progress Note (SOAP) ---
Subjective Subjective/Events-last exam Patient with shallow breathing. Family comfortable with plan. Not requiring as much pain meds or ativan today. Date seen by provider: Jul 19, 2016 Objective Exam Last Set of Vital Signs Vital Signs Date Time Temp Pulse Resp B/P Pulse Ox O2 Delivery O2 Flow Rate FiO2 07/18/16 20:45 Room Air 07/18/16 12:00 100/78 07/18/16 11:00 110 07/18/16 08:20 15 95 07/18/16 08:00 97.8 Capillary Refill : Less Than 3 Seconds I&O Bad tableGeneral: Other (resting comfortably, stirs to touch) Lungs: Clear to Auscultation, Other (shallow, some chirag-gates breathing) Heart: Other (tachycardic, no murmurs) Extremities: No Cyanosis, No Edema Results/Procedures Lab Microbiology 07/18/16 Influenza Types A,B Antigen (JOSE) - Final, Complete 07/18/16 Urine Culture - Preliminary, Resulted Pseudomonas Aeruginosa Lactobacillus Species Assessment/Plan Assessment/Plan Plan SEVERE SEPSIS/SEPTIC SHOCK ACUTE PYELONEPHRITIS LONGSTANDING INDWELLING MAYES CATHETER STEMI VERSUS STRESS CARDIOMYOPATHY 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 HOwever, the patient continued to cry out "don't touch me " and "let me go." I discussed with her daughter, in her presence, that there were many issues to overcome. I first asked if she would want elective intubation should she not be able to breathe well from the rapid fluid administration. Her daughter and the patient indicated that she did not want to be on lorne vent whatsoever. Secondly, I approached them regarding a comfort/ palliative care direction. My concern is that the family would remember the patient crying in pain, especially if we were unsuccessful and she . When asked, Renata was very clear to me that she wanted to stop everything and receive pain medication. I explained that the apin medication would greatly inhibit our efforts to improve her blood pressure and potentially to save her life. She was very clear that she was "ready to go." For that reason , we decided to move to a comfort care regimen. I did leave the levophed on for a few hours while her family came in to town to visit with her. From there , we stopped all meds and moved to dilaudid for pain control and ativan for anxiety. She was transferred to 4th floor for increased privacy. Patinet and family were appreciative of and agreeable to this plan. 07/19 - Patient is comfortable, does not like to be stirred. will add glycopyrrolate/rest of comfort care order set. family agreeable to plan and appreciative of care she has received so far. Diagnosis/Problems: Clinical Quality Measures AMI/AHF: ASA po Prior to arrival: No DVT/VTE Risk/Contraindication: Risk Factor Score Per Nursin RFS Level Per Nursing on Admit: 4+=Very High GALLO POTTS MD Jul 19, 2016 3:12 pm
[2016-07-20] MEDS: HYDROmorphone (DILAUDID) 2 MG/ML VIAL IVP PRN ×5 (05:47→23:40)
[2016-07-20] MEDS: LORazepam INJ 2 MG/ML (ATIVAN) VIAL IVP PRN ×4 (05:48→22:12)
--- NOTE | 2016-07-20 11:56 | Physician Query-General Query ---
Physician Query-General Query to Physician: For clarification: Was this patient's sepsis due to the chronic indwelling urinary catheter? Unrelated to cath? Other? yes, likely related to chronic cath PHYSICIAN RESPONSE: Based on the clinical findings in the record, please respond to the query above on this document as an addendum. Possible, probable, or questionable diagnosis can be coded for INPATIENTS ONLY. Physician Response: Physician Response see above If you have questions please contact: Cardiac Tech:Karina Gallagher CCS,CCDS Ext:[phone] Thank you for your time and cooperation. Clinical Firearms Model Maker/Cardiac Tech This is a permanent part of the medical record KARINA GALLAGHER Jul 20, 2016 11:56 am GALLO POTTS MD Jul 20, 2016 12:50 pm
--- NOTE | 2016-07-20 12:57 | Progress Note (SOAP) ---
Subjective Subjective/Events-last exam Patient has been asking for more pain meds since yesterday. does not want to be touched. woke up to ask that doctors were not actively treating and would let her go. family at bedside. Date seen by provider: Jul 20, 2016 Objective Exam Last Set of Vital Signs Vital Signs Date Time Temp Pulse Resp B/P Pulse Ox O2 Delivery O2 Flow Rate FiO2 07/20/16 08:30 Room Air 07/18/16 12:00 100/78 07/18/16 11:00 110 07/18/16 08:20 15 95 07/18/16 08:00 97.8 Capillary Refill : Less Than 3 Seconds I&O Intake and Output 07/20/16 00:00 Intake Total 0 ml Output Total 1000 ml Balance -1000 ml Intake Oral 0 ml Output Urine Total 1000 ml General: Other (resting comfortably, stirs occasionally) Lungs: Other (shallow) Skin: No Rashes, No Breakdown Results/Procedures Lab Microbiology 07/18/16 Blood Culture - Preliminary, Resulted No growth 07/18/16 Influenza Types A,B Antigen (JOSE) - Final, Complete 07/18/16 Urine Culture - Final, Complete Pseudomonas Aeruginosa Lactobacillus Species Assessment/Plan Assessment/Plan Plan SEVERE SEPSIS/SEPTIC SHOCK ACUTE PYELONEPHRITIS LONGSTANDING INDWELLING MAYES CATHETER STEMI VERSUS STRESS CARDIOMYOPATHY 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 HOwever, the patient continued to cry out "don't touch me " and "let me go." I discussed with her daughter, in her presence, that there were many issues to overcome. I first asked if she would want elective intubation should she not be able to breathe well from the rapid fluid administration. Her daughter and the patient indicated that she did not want to be on lorne vent whatsoever. Secondly, I approached them regarding a comfort/ palliative care direction. My concern is that the family would remember the patient crying in pain, especially if we were unsuccessful and she . When asked, Renata was very clear to me that she wanted to stop everything and receive pain medication. I explained that the apin medication would greatly inhibit our efforts to improve her blood pressure and potentially to save her life. She was very clear that she was "ready to go." For that reason , we decided to move to a comfort care regimen. I did leave the levophed on for a few hours while her family came in to town to visit with her. From there , we stopped all meds and moved to dilaudid for pain control and ativan for anxiety. She was transferred to 4th floor for increased privacy. Patinet and family were appreciative of and agreeable to this plan. 07/19 - Patient is comfortable, does not like to be stirred. will add glycopyrrolate/rest of comfort care order set. family agreeable to plan and appreciative of care she has received so far. 07/20 - continue current care. no obvious mottling, urine is darker today. family comfortable with plan and noted excellent nursing care. discussed with them that patients often take their own time in this process, hard to give prognosis of how long this will take. however, I do not believe it will take more than another 48h. Diagnosis/Problems: Clinical Quality Measures AMI/AHF: ASA po Prior to arrival: No DVT/VTE Risk/Contraindication: Risk Factor Score Per Nursin RFS Level Per Nursing on Admit: 4+=Very High GALLO POTTS MD Jul 20, 2016 12:57 pm
[2016-07-21] MEDS: LORazepam INJ 2 MG/ML (ATIVAN) VIAL IVP PRN ×7 (01:15→23:54)
[2016-07-21] MEDS: HYDROmorphone (DILAUDID) 2 MG/ML VIAL IVP PRN ×3 (01:38→07:56)
[2016-07-21] MEDS ORDERED: NS IV 1000 ML 1,000 ML ONE (09:28)
[2016-07-21] MEDS: HYDROmorphone PCA 0.2 MG/ML 30 ML (DILAUDID) IV PRN ×2 (09:48→23:52)
[2016-07-21] MEDS: NS IV 1000 ML 1,000 ML IV SCH (11:23)
[2016-07-21] MEDS: NOREPINEPHRINE FOR DRIPS 4 MG in D5W 250 ML (IVPB) 250 ML IV SCH (11:23)
[2016-07-21] MEDS ORDERED: NS IV 1000 ML 1,000 ML IV SCH (11:30)
--- NOTE | 2016-07-21 11:52 | Progress Note (SOAP) ---
Subjective Subjective/Events-last exam Pt having more agonal breathing. Pt reports pt had a lot of pain during the night, especially with urination. Objective Exam Last Set of Vital Signs Vital Signs Date Time Temp Pulse Resp B/P Pulse Ox O2 Delivery O2 Flow Rate FiO2 07/20/16 20:00 Room Air 07/18/16 12:00 100/78 07/18/16 11:00 110 07/18/16 08:20 15 95 07/18/16 08:00 97.8 Capillary Refill : Less Than 3 Seconds I&O Intake and Output 07/21/16 00:00 Intake Total 0 ml Output Total 500 ml Balance -500 ml Intake Oral 0 ml Output Urine Total 500 ml General: Other (sleeping, agonal breathing with intermittent pauses) Results/Procedures Lab Microbiology 07/18/16 Blood Culture - Preliminary, Resulted No growth 07/18/16 Influenza Types A,B Antigen (JOSE) - Final, Complete 07/18/16 Urine Culture - Final, Complete Pseudomonas Aeruginosa Lactobacillus Species Assessment/Plan Assessment/Plan Plan SEVERE SEPSIS/SEPTIC SHOCK ACUTE PYELONEPHRITIS LONGSTANDING INDWELLING MAYES CATHETER STEMI VERSUS STRESS CARDIOMYOPATHY 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 HOwever, the patient continued to cry out "don't touch me " and "let me go." I discussed with her daughter, in her presence, that there were many issues to overcome. I first asked if she would want elective intubation should she not be able to breathe well from the rapid fluid administration. Her daughter and the patient indicated that she did not want to be on lorne vent whatsoever. Secondly, I approached them regarding a comfort/ palliative care direction. My concern is that the family would remember the patient crying in pain, especially if we were unsuccessful and she . When asked, Renata was very clear to me that she wanted to stop everything and receive pain medication. I explained that the apin medication would greatly inhibit our efforts to improve her blood pressure and potentially to save her life. She was very clear that she was "ready to go." For that reason , we decided to move to a comfort care regimen. I did leave the levophed on for a few hours while her family came in to town to visit with her. From there , we stopped all meds and moved to dilaudid for pain control and ativan for anxiety. She was transferred to 4th floor for increased privacy. Patinet and family were appreciative of and agreeable to this plan. 07/19 - Patient is comfortable, does not like to be stirred. will add glycopyrrolate/rest of comfort care order set. family agreeable to plan and appreciative of care she has received so far. 07/20 - continue current care. no obvious mottling, urine is darker today. family comfortable with plan and noted excellent nursing care. discussed with them that patients often take their own time in this process, hard to give prognosis of how long this will take. however, I do not believe it will take more than another 48h. 07/21 - will add STAFFING CONSULTANT for basal rate for improved pain control at the family's request. Diagnosis/Problems: Clinical Quality Measures AMI/AHF: ASA po Prior to arrival: No DVT/VTE Risk/Contraindication: Risk Factor Score Per Nursin RFS Level Per Nursing on Admit: 4+=Very High AVELINO EDWARDS DO Jul 21, 2016 11:52
[2016-07-21] MEDS: NS IV 500 ML 500 ML IV SCH (14:58)
--- NOTE | 2016-07-22 11:10 | Progress Note (SOAP) ---
Subjective Subjective/Events-last exam Respirations have slowed some. Family reports pt is more comfortable on the FLIGHT ENGINEER HELICOPTER. Objective Exam Last Set of Vital Signs Vital Signs Date Time Temp Pulse Resp B/P Pulse Ox O2 Delivery O2 Flow Rate FiO2 07/21/16 23:52 15 07/21/16 20:00 Room Air 07/21/16 08:00 95 07/18/16 12:00 100/78 07/18/16 11:00 110 07/18/16 08:00 97.8 Capillary Refill : Less Than 3 Seconds I&O Intake and Output 07/22/16 00:00 Intake Total 0 ml Output Total 650 ml Balance -650 ml Intake Oral 0 ml Output Urine Total 650 ml Results/Procedures Lab Microbiology 07/18/16 Blood Culture - Preliminary, Resulted No growth 07/18/16 Influenza Types A,B Antigen (JOSE) - Final, Complete 07/18/16 Urine Culture - Final, Complete Pseudomonas Aeruginosa Lactobacillus Species Assessment/Plan Assessment/Plan Plan SEVERE SEPSIS/SEPTIC SHOCK ACUTE PYELONEPHRITIS LONGSTANDING INDWELLING MAYES CATHETER STEMI VERSUS STRESS CARDIOMYOPATHY 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 HOwever, the patient continued to cry out "don't touch me " and "let me go." I discussed with her daughter, in her presence, that there were many issues to overcome. I first asked if she would want elective intubation should she not be able to breathe well from the rapid fluid administration. Her daughter and the patient indicated that she did not want to be on lorne vent whatsoever. Secondly, I approached them regarding a comfort/ palliative care direction. My concern is that the family would remember the patient crying in pain, especially if we were unsuccessful and she . When asked, Renata was very clear to me that she wanted to stop everything and receive pain medication. I explained that the apin medication would greatly inhibit our efforts to improve her blood pressure and potentially to save her life. She was very clear that she was "ready to go." For that reason , we decided to move to a comfort care regimen. I did leave the levophed on for a few hours while her family came in to town to visit with her. From there , we stopped all meds and moved to dilaudid for pain control and ativan for anxiety. She was transferred to 4th floor for increased privacy. Patinet and family were appreciative of and agreeable to this plan. 07/19 - Patient is comfortable, does not like to be stirred. will add glycopyrrolate/rest of comfort care order set. family agreeable to plan and appreciative of care she has received so far. 07/20 - continue current care. no obvious mottling, urine is darker today. family comfortable with plan and noted excellent nursing care. discussed with them that patients often take their own time in this process, hard to give prognosis of how long this will take. however, I do not believe it will take more than another 48h. 07/21 - will add FLIGHT ENGINEER HELICOPTER for basal rate for improved pain control at the family's request. 07/22 - continue same comfort care. Diagnosis/Problems: Clinical Quality Measures AMI/AHF: ASA po Prior to arrival: No DVT/VTE Risk/Contraindication: Risk Factor Score Per Nursin RFS Level Per Nursing on Admit: 4+=Very High AVELINO EDWARDS DO Jul 22, 2016 11:10
[2016-07-22] MEDS: LORazepam INJ 2 MG/ML (ATIVAN) VIAL IVP PRN ×3 (11:27→22:34)
[2016-07-22] MEDS: NS IV 500 ML 500 ML IV SCH (13:10)
[2016-07-22] MEDS: SCOPOLAMINE 1.5 MG (TRANSDERM-SCOP) PATCH TOP SCH (13:12)
[2016-07-22] MEDS: HYDROmorphone PCA 0.2 MG/ML 30 ML (DILAUDID) IV PRN (14:35)
[2016-07-23] MEDS: HYDROmorphone PCA 0.2 MG/ML 30 ML (DILAUDID) IV PRN ×2 (04:17→17:30)
[2016-07-23] MEDS: LORazepam INJ 2 MG/ML (ATIVAN) VIAL IVP PRN ×3 (06:20→14:30)
[2016-07-23] MEDS: NS IV 500 ML 500 ML IV SCH (08:35)
--- NOTE | 2016-07-23 10:40 | Progress Note (SOAP) ---
Subjective Subjective/Events-last exam Patient comfortable on STEAM DRIER TENDER, family states that the ativan is not working as long and patient becomes agitated. No longer turning patient because of severe pain and agitation. Date seen by provider: Jul 23, 2016 Objective Exam Last Set of Vital Signs Vital Signs Date Time Temp Pulse Resp B/P Pulse Ox O2 Delivery O2 Flow Rate FiO2 07/23/16 08:00 Room Air 07/23/16 07:00 16 07/22/16 08:35 95 07/18/16 12:00 100/78 07/18/16 11:00 110 07/18/16 08:00 97.8 Capillary Refill : Less Than 3 Seconds I&O Intake and Output 07/23/16 00:00 Intake Total 0 ml Output Total 500 ml Balance -500 ml Intake Oral 0 ml Output Urine Total 500 ml General: No Acute Distress (Resting comfortable) Lungs: Other (Secretions getting thicker) Abdomen: Soft Extremities: Other (Mottling present on feet) Results/Procedures Lab Microbiology 07/18/16 Blood Culture - Preliminary, Resulted No growth 07/18/16 Influenza Types A,B Antigen (JOSE) - Final, Complete 07/18/16 Urine Culture - Final, Complete Pseudomonas Aeruginosa Lactobacillus Species Assessment/Plan Assessment/Plan Plan SEVERE SEPSIS/SEPTIC SHOCK ACUTE PYELONEPHRITIS LONGSTANDING INDWELLING MAYES CATHETER STEMI VERSUS STRESS CARDIOMYOPATHY 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 HOwever, the patient continued to cry out "don't touch me " and "let me go." I discussed with her daughter, in her presence, that there were many issues to overcome. I first asked if she would want elective intubation should she not be able to breathe well from the rapid fluid administration. Her daughter and the patient indicated that she did not want to be on lorne vent whatsoever. Secondly, I approached them regarding a comfort/ palliative care direction. My concern is that the family would remember the patient crying in pain, especially if we were unsuccessful and she . When asked, Renata was very clear to me that she wanted to stop everything and receive pain medication. I explained that the apin medication would greatly inhibit our efforts to improve her blood pressure and potentially to save her life. She was very clear that she was "ready to go." For that reason , we decided to move to a comfort care regimen. I did leave the levophed on for a few hours while her family came in to town to visit with her. From there , we stopped all meds and moved to dilaudid for pain control and ativan for anxiety. She was transferred to 4th floor for increased privacy. Patinet and family were appreciative of and agreeable to this plan. 07/19 - Patient is comfortable, does not like to be stirred. will add glycopyrrolate/rest of comfort care order set. family agreeable to plan and appreciative of care she has received so far. 07/20 - continue current care. no obvious mottling, urine is darker today. family comfortable with plan and noted excellent nursing care. discussed with them that patients often take their own time in this process, hard to give prognosis of how long this will take. however, I do not believe it will take more than another 48h. 07/21 - will add STEAM DRIER TENDER for basal rate for improved pain control at the family's request. 07/22 - continue same comfort care. 07/23- Increased frequency of ativan at family's request, Continue comfort care Diagnosis/Problems: Clinical Quality Measures AMI/AHF: ASA po Prior to arrival: No DVT/VTE Risk/Contraindication: Risk Factor Score Per Nursin RFS Level Per Nursing on Admit: 4+=Very High SANTO MULLINS MD Jul 23, 2016 10:40
[2016-07-24] MEDS: LORazepam INJ 2 MG/ML (ATIVAN) VIAL IVP PRN ×3 (00:13→21:25)
[2016-07-24] MEDS: HYDROmorphone PCA 0.2 MG/ML 30 ML (DILAUDID) IV PRN ×2 (07:47→21:46)
[2016-07-24] MEDS: NS IV 500 ML 500 ML IV SCH (09:40)
[2016-07-24] MEDS ORDERED: CATHETER FLUSH 10 ML SYR IV PRN (14:45)
[2016-07-25] MEDS: NS IV 500 ML 500 ML IV SCH (11:05)
[2016-07-25] MEDS: HYDROmorphone PCA 0.2 MG/ML 30 ML (DILAUDID) IV PRN ×2 (11:08→21:34)
[2016-07-25] MEDS: SCOPOLAMINE 1.5 MG (TRANSDERM-SCOP) PATCH TOP SCH (13:20)
[2016-07-25] MEDS: LORazepam INJ 2 MG/ML (ATIVAN) VIAL IVP PRN ×2 (14:44→23:57)
--- NOTE | 2016-07-25 15:28 | Progress Note (SOAP) ---
Subjective Subjective/Events-last exam Patient resting comfortably. Daughter states that she was having some gasping overnight that improved with STORES LABORER morphine. Answered questions from daughters today Date seen by provider: Jul 25, 2016 Objective Exam Last Set of Vital Signs Vital Signs Date Time Temp Pulse Resp B/P Pulse Ox O2 Delivery O2 Flow Rate FiO2 07/25/16 14:00 18 07/25/16 08:00 Room Air 07/22/16 08:35 95 Capillary Refill : Less Than 3 Seconds I&O Intake and Output 07/25/16 00:00 Intake Total 500 ml Output Total 365 ml Balance 135 ml Intake Oral 0 ml IV Total 500 ml Output Urine Total 365 ml General: Other (Non responsive) Lungs: Other (Irregular breathing pattern) Extremities: Other (hands and feet are mottled) Results/Procedures Lab Microbiology 07/18/16 Blood Culture - Final, Complete No growth 07/18/16 Influenza Types A,B Antigen (JOSE) - Final, Complete 07/18/16 Urine Culture - Final, Complete Pseudomonas Aeruginosa Lactobacillus Species Assessment/Plan Assessment/Plan Plan SEVERE SEPSIS/SEPTIC SHOCK ACUTE PYELONEPHRITIS LONGSTANDING INDWELLING MAYES CATHETER STEMI VERSUS STRESS CARDIOMYOPATHY 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 HOwever, the patient continued to cry out "don't touch me " and "let me go." I discussed with her daughter, in her presence, that there were many issues to overcome. I first asked if she would want elective intubation should she not be able to breathe well from the rapid fluid administration. Her daughter and the patient indicated that she did not want to be on lorne vent whatsoever. Secondly, I approached them regarding a comfort/ palliative care direction. My concern is that the family would remember the patient crying in pain, especially if we were unsuccessful and she . When asked, Renata was very clear to me that she wanted to stop everything and receive pain medication. I explained that the apin medication would greatly inhibit our efforts to improve her blood pressure and potentially to save her life. She was very clear that she was "ready to go." For that reason , we decided to move to a comfort care regimen. I did leave the levophed on for a few hours while her family came in to town to visit with her. From there , we stopped all meds and moved to dilaudid for pain control and ativan for anxiety. She was transferred to 4th floor for increased privacy. Patinet and family were appreciative of and agreeable to this plan. 07/19 - Patient is comfortable, does not like to be stirred. will add glycopyrrolate/rest of comfort care order set. family agreeable to plan and appreciative of care she has received so far. 07/20 - continue current care. no obvious mottling, urine is darker today. family comfortable with plan and noted excellent nursing care. discussed with them that patients often take their own time in this process, hard to give prognosis of how long this will take. however, I do not believe it will take more than another 48h. 07/21 - will add STORES LABORER for basal rate for improved pain control at the family's request. 07/22 - continue same comfort care. 07/23- Increased frequency of ativan at family's request, Continue comfort care 07/25: Patient is now completely unresponsive, comfortable with STORES LABORER, secretions controlled, can increase freq of ativan if needed Diagnosis/Problems: Clinical Quality Measures AMI/AHF: ASA po Prior to arrival: No DVT/VTE Risk/Contraindication: Risk Factor Score Per Nursin RFS Level Per Nursing on Admit: 4+=Very High SANTO MULLINS MD Jul 25, 2016 3:28 pm
[2016-07-26] MEDS: NS IV 500 ML 500 ML IV SCH (09:54)
[2016-07-26] MEDS: LORazepam INJ 2 MG/ML (ATIVAN) VIAL IVP PRN ×2 (09:54→14:47)
[2016-07-26] MEDS: HYDROmorphone PCA 0.2 MG/ML 30 ML (DILAUDID) IV PRN ×2 (10:54→22:43)
[2016-07-27] MEDS: LORazepam INJ 2 MG/ML (ATIVAN) VIAL IVP PRN ×3 (05:19→12:22)
[2016-07-27] MEDS: HYDROmorphone PCA 0.2 MG/ML 30 ML (DILAUDID) IV PRN (08:58)
--- NOTE | 2016-07-27 11:08 | Progress Note (SOAP) ---
Subjective Subjective/Events-last exam Patient moaning more today. Periodic breathing. Date seen by provider: Jul 27, 2016 Objective Exam Last Set of Vital Signs Vital Signs Date Time Temp Pulse Resp B/P Pulse Ox O2 Delivery O2 Flow Rate FiO2 07/27/16 09:52 16 07/27/16 08:00 Room Air 07/22/16 08:35 95 Capillary Refill : Less Than 3 Seconds I&O Intake and Output 07/27/16 00:00 Intake Total 500 ml Output Total 150 ml Balance 350 ml Intake Oral 0 ml IV Total 500 ml Output Urine Total 150 ml General: Other (Unresponsive) Extremities: Other (Mottling present on hands and feet) Results/Procedures Lab Microbiology 07/18/16 Blood Culture - Final, Complete No growth 07/18/16 Influenza Types A,B Antigen (JOSE) - Final, Complete 07/18/16 Urine Culture - Final, Complete Pseudomonas Aeruginosa Lactobacillus Species Assessment/Plan Assessment/Plan Plan SEVERE SEPSIS/SEPTIC SHOCK ACUTE PYELONEPHRITIS LONGSTANDING INDWELLING MAYES CATHETER STEMI VERSUS STRESS CARDIOMYOPATHY 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 HOwever, the patient continued to cry out "don't touch me " and "let me go." I discussed with her daughter, in her presence, that there were many issues to overcome. I first asked if she would want elective intubation should she not be able to breathe well from the rapid fluid administration. Her daughter and the patient indicated that she did not want to be on lorne vent whatsoever. Secondly, I approached them regarding a comfort/ palliative care direction. My concern is that the family would remember the patient crying in pain, especially if we were unsuccessful and she . When asked, Renata was very clear to me that she wanted to stop everything and receive pain medication. I explained that the apin medication would greatly inhibit our efforts to improve her blood pressure and potentially to save her life. She was very clear that she was "ready to go." For that reason , we decided to move to a comfort care regimen. I did leave the levophed on for a few hours while her family came in to town to visit with her. From there , we stopped all meds and moved to dilaudid for pain control and ativan for anxiety. She was transferred to 4th floor for increased privacy. Patinet and family were appreciative of and agreeable to this plan. 07/19 - Patient is comfortable, does not like to be stirred. will add glycopyrrolate/rest of comfort care order set. family agreeable to plan and appreciative of care she has received so far. 07/20 - continue current care. no obvious mottling, urine is darker today. family comfortable with plan and noted excellent nursing care. discussed with them that patients often take their own time in this process, hard to give prognosis of how long this will take. however, I do not believe it will take more than another 48h. 07/21 - will add AUTOMATIC TELLER MACHINE SERVICER for basal rate for improved pain control at the family's request. 07/22 - continue same comfort care. 07/23- Increased frequency of ativan at family's request, Continue comfort care 07/25: Patient is now completely unresponsive, comfortable with AUTOMATIC TELLER MACHINE SERVICER, secretions controlled, can increase freq of ativan if needed 07/27: Increased AUTOMATIC TELLER MACHINE SERVICER, Increased ativan due to discomfort. Continue comfort care Diagnosis/Problems: Clinical Quality Measures AMI/AHF: ASA po Prior to arrival: No DVT/VTE Risk/Contraindication: Risk Factor Score Per Nursin RFS Level Per Nursing on Admit: 4+=Very High SANTO MULLINS MD Jul 27, 2016 11:08
[2016-07-27] MEDS: NS IV 500 ML 500 ML IV SCH (12:22)
--- NOTE | 2016-07-27 17:29 | Discharge Summary ---
Diagnosis/Chief Complaint Date of Admission Jul 18, 2016 at 06:21 Date of Discharge 07/27/2016 Admission Diagnosis Admission Diagnosis Severe Septic Shock Acute Pyelonephritis Chronic Indwelling Catheter STEMI vs Stress Cardiomyopathy Acute kidney injury Lactic Acidosis 2/2 Sepsis Debility Discharge Diagnosis See above Chief Complaint/HPI Chief Complaint/HPI 76yo woman presented to ER after complaining of palpitations and shortness of breath overnight in her residential at [facility]. She was hospitalized at for bleeding gastric ulcers and sepsis for 40 days in [place]. She was then transferred to [facility] to be closer to family. SInce taht time, she has had ongoing urinary issues. she was recommended to see Dr Bolivar but was not able to attend an appointment with him. In June, she began to have sx of a UTI again, and cultures were done. She was put on oral antibiotics, and the situation seemed to be resolving. However, she worsened acutely overnight and was found to be in septic shock. Patient's main complaint to me the morning of admission was of her generalized pain, likely cuased by her longstanding bedridden status and debility. Of note, patient's family emphasized that patient did not want a code. They also stated that she did not want transfer despite this being recommended due to hyperacute T waves due to her renal failure. THey requested that she be treated at [facility] with all services we have to offer. Discharge Summary-Simple/Stand Consultations Discharge Physical Examination Allergies: Coded Allergies: No Known Drug Allergies (Unverified , 07/18/16) Vitals & I&Os Vital Sign - Last 12Hours Date Time Temp Pulse Resp B/P Pulse Ox O2 Delivery O2 Flow Rate FiO2 07/27/16 15:14 16 07/27/16 08:00 Room Air 07/22/16 08:35 95 Intake and Output 07/27/16 00:00 Intake Total 0 ml Output Total 100 ml Balance -100 ml General Appearance: Other (Patient ) Hospital Course See final discharge diagnosis. Discussion & Recommendations 76 yo F that presented in severe septic shock from pyelonephritis. Patient had recent episode treated at and had told family if similar episode happened that she did not want aggressive treatment. At that time patient was very unstable with blood pressure 70/40 and was placed on comfort care. Patient remained comfortable until she passed on Jul 27. Discharge Condition at discharge Instructions to patient/family Please see electonic discharge instructions given to patient. Discharge Medications Reviewed and agree with Discharge Medication list on patient's Discharge Instruction sheet Clinical Quality Measures AMI/AHF: ASA po Prior to arrival: No DVT/VTE Risk/Contraindication: Risk Factor Score Per Nursin RFS Level Per Nursing on Admit: 4+=Very High Comfort Measures/ Type of Care: Comfort Measures Cardiopulmonary Arrest: Cardiorespiratory Arrest Date of : Jul 27, 2016 Copy Copies To 1: BHUMI CRUZ MD, HOLLY R MD Jul 27, 2016 17:29
== END 2016-07-27 19:45 | disposition expired | DRG 698 ==
LOC: ER 04:28 → ICU 06:21 → 4TH 13:45
PROVIDERS: ADMIT Pediatrics; ATTEND Pediatrics
PROC: 02HV33Z Insertion of Infusion Device into Superior Vena Cava, Percutaneous Approach (ICD-10-PCS; principal; 2016-07-18)
DX: T83.511A Infection and inflammatory reaction due to indwelling urethral catheter, initial encounter (principal); A41.9 Sepsis, unspecified organism; R65.21 Severe sepsis with septic shock; N10 Acute pyelonephritis; N17.9 Acute kidney failure, unspecified; I69.351 Hemiplegia and hemiparesis following cerebral infarction affecting right dominant side; E87.1 Hypo-osmolality and hyponatremia; E86.0 Dehydration; Z66 Do not resuscitate; Z51.5 Encounter for palliative care; I46.9 Cardiac arrest, cause unspecified; E87.5 Hyperkalemia; R07.9 Chest pain, unspecified; I25.10 Atherosclerotic heart disease of native coronary artery without angina pectoris; E11.9 Type 2 diabetes mellitus without complications; R53.81 Other malaise; I10 Essential (primary) hypertension; Z95.1 Presence of aortocoronary bypass graft; Z95.5 Presence of coronary angioplasty implant and graft
CPT/HCPCS: 36415; 36556; 71010; 80048; 80053; 81000; 82805; 83605; 83735; 83874; 84484; 85007; 85027; 85610; 85730; 87040; 87088; 87804; 93005; 93041; 96361; 96365; 96375; 96376